=== PATIENT | male | born 1945 | race Caucasian/White ===

== ENCOUNTER → 2019-03-10 08:55 | Emergency (ER) | payer SELFPAY ==
[~2019-03-10 08:55] MED LIST: Al Hydrox/Mg Hydrox/Simet LIQ* 30 ML UDC PO ONE; Aspirin 81 mg CHEW TAB* 81 MG TAB.CHEW PO ONE; Famotidine TAB* 20 MG PO ONE; Metoprolol Tartrate IV* 1 MG/ML 5 ML VIAL IV ONE; NS 0.9% 1000 ML** 1,000 ML IV ONE; Sucralfate TAB* 1 GM PO ONE
[2019-03-10 09:17] LABS: ABS Lymphocytes 1.1 10^3/ul (1.0-4.8); ABS Monocytes 0.6 10^3/ul (0-0.8); ABS Neutrophils 7.8 10^3/ul (1.5-7.7); Eosinophil % 0.5 %; Hematocrit 42 % (42-52); Hemoglobin 14.6 g/dL (14.0-18.0); Lymphocyte % 11.1 %; Mean Corpuscular HGB Conc 34 g/dL (31-36); Mean Corpuscular Hemoglobin 33 pg (27-31); Mean Corpuscular Volume 96 fL (80-94); Mean Platelet Volume 8.2 fL (7.4-10.4); Platelet Count 142 10^3/uL (150-450); Red Blood Count 4.42 10^6 /uL (4.18-5.48); Red Cell Distribution Width 13 % (10-15); White Blood Count 9.4 10^3/uL (3.5-10.8)
--- NOTE | 2019-03-10 09:23 | ED ---
HPI Chest Pain - HPI Summary HPI Summary: Pt is a 73 y/o male with hx of GERD for which he takes omeprazole, presenting with epigastric pain and shortness of breath beginning this morning at 0200 after drinking 2 glasses of wine and 2 beers. He called his PCP this morning concerned for these symptoms; Dr. Prado suggested he come to the ED for r/o NV. He states he took Tums and his pain dissipated after 2 hours. He c/o fatigue currently, likely because he has not slept, and mild nausea. Denies chest pain, shortness of breath, cough, abdominal pain, ankle swelling. He also notes erythematous patches to his b/l inner thighs and lower back that were initially pruritic but are not currently, presenting 3 days ago. Recalls he flew to the [place] and back 4 weeks ago. States he smoked 1 and 1/2 PPD but quit 7 years ago. Drinks 5 alcoholic drinks daily. Notes a hx of NV in his 20's after smoking a bowl of opium. Denies hx of HTN or other NV. - History of Current Complaint Chief Complaint: EDChestPainROMI Time Seen by Provider: 03/10/19 08:58 Hx Obtained From: Patient Onset/Duration: Started Hours Ago Time of Onset: 02:00 Timing: Lasting Hours - 2 hours Initial Severity: Moderate Current Severity: None Pain Intensity: 0 Pain Scale Used: 0-10 Numeric Chest Pain Radiates: No Character: Burning Aggravating Factor(s): Nothing Alleviating Factor(s): Nothing Associated Signs and Symptoms: Positive: Chest Pain - Resolved., Shortness of Breath - Resolved., Chills, Nausea. Negative: Headaches, Numbness, Tingling, Weakness, Swelling, Fever, Cough, Abdominal Pain - Risk Factors Pulmonary Embolism Risk Factors: Recent Travel - Within last 4 weeks. - Allergy/Home Medications Allergies/Adverse Reactions: Allergies Allergy/AdvReac Type Severity Reaction Status Date / Time No Known Allergies Allergy Verified 03/10/19 09:06 Home Medications: Home Medications Prilosec CAP* 20 MG 20 mg PO DAILY 03/10/19 [History Confirmed 03/10/19] PMH/Surg Hx/FS Hx/Imm Hx Previously Healthy: No Endocrine/Hematology History: Denies: Hx Diabetes Cardiovascular History: Reports: Hx Angina - chest pressure/pain, Hx Myocardial Infarction - Age 20's Denies: Hx Coronary Artery Disease, Hx Hypercholesterolemia, Hx Hypertension , Hx Valvular Heart Disease, Other Cardiovascular Problems/Disorders Respiratory History: Denies: Hx Asthma, Hx Chronic Obstructive Pulmonary Disease (COPD), Other Respiratory Problems/Disorders GI History: Reports: Hx Gastroesophageal Reflux Disease, Hx Jaundice Denies: Other GI Disorders History: Denies: Other Problems/Disorders Musculoskeletal History: Denies: Other Musculoskeletal History Sensory History: Reports: Hx Contacts or Glasses - GLASSES Denies: Hx Hearing Aid Opthamlomology History: Reports: Hx Contacts or Glasses - GLASSES Neurological History: Denies: Other Neuro Impairments/Disorders Psychiatric History: Reports: Hx Anxiety - 1 ATTACK 16 YEARS AGO - Surgical History Surgery Procedure, Year, and Place: RIGHT FOOT X2, LEFT ARM, 2012, [facility] Hx Anesthesia Reactions: No - DIFFICULTY WAKING, NAUSEA Infectious Disease History: No Infectious Disease History: Reports: Hx Hepatitis - 40 YEARS AGO, Traveled Outside the [place] in Last 30 Days - [facility] - Family History Known Family History: Positive: Non-Contributory - Social History Alcohol Use: Daily Alcohol Amount: 5 beers Substance Use Type: Reports: None Smoking Status (MU): Former Smoker Review of Systems Positive: Fatigue. Negative: Fever, Chills Positive: Chest Pain - Resolved. Positive: Shortness Of Breath - Resolved.. Negative: Cough Positive: Nausea. Negative: Abdominal Pain, Vomiting Positive: Rash - B/l inner thighs and low back Negative: Headache, Numbness All Other Systems Reviewed And Are Negative: Yes Physical Exam Triage Information Reviewed: Yes Vital Signs On Initial Exam: Initial Vitals Temp Pulse Resp BP Pulse Ox 99.9 F 110 18 120/84 94 03/10/19 08:57 03/10/19 08:57 03/10/19 08:57 03/10/19 08:57 03/10/19 08:57 Vital Signs Reviewed: Yes Appearance: Positive: Well-Appearing, No Pain Distress Skin: Positive: Warm, Skin Color Reflects Adequate Perfusion, Dry, Other - Multiple erythematous macules to inner b/l thighs and low back. Non-tender, no drainage. No red streaking. Head/Face: Positive: Normal Head/Face Inspection Eyes: Positive: Normal, Conjunctiva Clear ENT: Positive: Normal ENT inspection Neck: Positive: Supple Respiratory/Lung Sounds: Positive: Clear to Auscultation, Decreased Breath Sounds - Throughout. Negative: Rales, Rhonchi, Wheezes Cardiovascular: Positive: Tachycardia - Regular rhythm. Negative: Murmur, Rub, Leg Edema Left, Leg Edema Right Abdomen Description: Positive: Nontender, Soft, Other: - Obese. Negative: Distended Bowel Sounds: Positive: Present Musculoskeletal: Positive: Normal, Strength/ROM Intact, Other - No calf tenderness Neurological: Positive: Normal, Sensory/Motor Intact, Alert, Oriented to Person Place, Time Psychiatric: Positive: Normal Diagnostics - Vital Signs Vital Signs Temp Pulse Resp BP Pulse Ox 03/10/19 09:08 102 20 96 03/10/19 08:57 99.9 F 110 18 120/84 94 - Laboratory Lab Results: Laboratory Results - last 24 hr 03/10/19 03/10/19 03/10/19 09:06 09:06 09:06 WBC 9.4 RBC 4.42 Hgb 14.6 Hct 42 MCV 96 H MCH 33 H MCHC 34 RDW 13 Plt Count 142 L MPV 8.2 Neut % (Auto) 82.2 Lymph % (Auto) 11.1 Davison % (Auto) 5.9 Eos % (Auto) 0.5 Baso % (Auto) 0.3 Absolute Neuts (auto) 7.8 H Absolute Lymphs (auto) 1.1 Absolute Monos (auto) 0.6 Absolute Eos (auto) 0.0 Absolute Basos (auto) 0.0 Absolute Nucleated RBC 0.0 Nucleated RBC % 0.0 INR (Anticoag Therapy) 0.97 D-Dimer, Quantitative < 200 Sodium 139 Potassium 3.8 Chloride 104 Carbon Dioxide 26 Anion Gap 9 BUN 15 Creatinine 0.88 Est GFR ( Amer) 103.0 Est GFR (Non-Af Amer) 85.1 BUN/Creatinine Ratio 17.0 Glucose 114 H Calcium 9.5 Total Bilirubin 0.80 AST 34 ALT 51 Alkaline Phosphatase 58 Troponin I 0.00 Total Protein 7.0 Albumin 4.3 Globulin 2.7 Albumin/Globulin Ratio 1.6 03/10/19 10:37 WBC RBC Hgb Hct MCV MCH MCHC RDW Plt Count MPV Neut % (Auto) Lymph % (Auto) Davison % (Auto) Eos % (Auto) Baso % (Auto) Absolute Neuts (auto) Absolute Lymphs (auto) Absolute Monos (auto) Absolute Eos (auto) Absolute Basos (auto) Absolute Nucleated RBC Nucleated RBC % INR (Anticoag Therapy) D-Dimer, Quantitative Sodium Potassium Chloride Carbon Dioxide Anion Gap BUN Creatinine Est GFR ( Amer) Est GFR (Non-Af Amer) BUN/Creatinine Ratio Glucose Calcium Total Bilirubin AST ALT Alkaline Phosphatase Troponin I 0.00 Total Protein Albumin Globulin Albumin/Globulin Ratio Result Diagrams: 03/10/19 09:06 03/10/19 09:06 Lab Statement: Any lab studies that have been ordered have been reviewed, and results considered in the medical decision making process. - Radiology CXR Radiology Interpretation Completed By: Radiologist Summary of Radiographic Findings: No active cardiopulmonary disease - EKG Time 08:59 Cardiac Rate: Tachycardia EKG Rhythm: Sinus Rhythm ST Segment: Normal Ectopy: None Summary of EKG Findings: Normal axis, normal intervals. RBBB. Time 10:27 Cardiac Rate: NL - Rate 82 EKG Rhythm: Sinus Rhythm ST Segment: Normal Ectopy: None EKG Comparison: No Significant Change Summary of EKG Findings: RBBB. Chest Pain Course/Dx - Course Course Of Treatment: 73 y/o male with hx of GERD and NV at age 21's with chest pain and shortness of breath this morning, now resolved. Recent travel within last month. CBC and CMP WNL, D-dimer and serial troponins negative. CXR clear and EKG's without acute changes. Pt's symptoms improved with GI cocktail. Discharged home to f/u with PCP Dr. Prdao. Prescription changed to omeprazole 40 mg PO. Added carafate and Pepcid to regimen, sent to pharmacy. Assessment/Plan: Patient tachycardic with complaint only at this time of GERD. EKG 2 negative. Troponin 2 negative. Symptoms all gone with GI treatment. Follow-up with primary care physician. - Chest Pain Differential Diagnosis/HQI/PQRI: Acute NV, Angina, Chest Wall, GI Disease, Pulmonary Embolism - Diagnoses Provider Diagnoses: GERD (gastroesophageal reflux disease), Atypical chest pain Discharge - Sign-Out/Discharge Documenting (check all that apply): Patient Departure Patient Received Moderate/Deep Sedation with Procedure: No - Discharge Plan Condition: Improved Disposition: HOME Prescriptions: Famotidine TAB* [Pepcid 20 MG TAB*] 20 mg PO BID #30 tab Sucralfate [Carafate] 1 gm PO QID #40 tablet Patient Education Materials: Chest Pain (ED), Gastroesophageal Reflux Disease ( ED) Referrals: Felice Prado MD [Primary Care Provider] - Additional Instructions: Double your omeprazole for the next 5 days. Avoid alcohol, ibuprofen/Aleve, spicy foods. Call your doctor today to schedule prompt follow-up. He may want to schedule an outpatient stress test. Return with chest pain, difficulty breathing, worse, new symptoms or other concerns as discussed. - Billing Disposition and Condition Condition: IMPROVED Disposition: Home - Attestation Statements Document Initiated by Sergio: Yes Documenting Scribe: DONELL Torres Provider For Whom Sergio is Documenting (Include Credential): Dr. Hinton Scribmohinder Attestation: IGreg PA-S, scribed for Dr. Hinton on 03/10/19 at 1153. Scribe Documentation Reviewed: Yes Provider Attestation: The documentation as recorded by the sergio, DONELL Torres accurately reflects the service I personally performed and the decisions made by Dr. Jamaal martínez Status of Scribmohinder Document: Viewed
[2019-03-10 09:32] LABS: Albumin 4.3 g/dL (3.2-5.2); Albumin/Globulin Ratio 1.6 (1-3); Calcium 9.5 mg/dL (8.6-10.3); EGFR Non-African American 85.1 (>60); Globulin 2.7 g/dL (2-4); INR 0.97 (0.82-1.09); Potassium 3.8 mmol/L (3.5-5.0); Total Bilirubin 0.8 mg/dL (0.2-1.0)
[2019-03-10 11:17] VITALS: BP 113/67
== END | disposition home or self-care (01) ==
LOC: ED 08:55
DX: K21.9 Gastro-esophageal reflux disease without esophagitis (principal); R07.89 Other chest pain; R00.0 Tachycardia, unspecified; I45.10 Unspecified right bundle-branch block; R53.83 Other fatigue; R11.0 Nausea; R21 Rash and other nonspecific skin eruption; Z87.891 Personal history of nicotine dependence
CPT/HCPCS: 36415; 71045; 80053; 84484; 85025; 85379; 85610; 93005; 96361; 96374; 99284; A9270-GY; J3490